=== PATIENT | male | born 1935 | race Caucasian/White ===

== ENCOUNTER 2016-10-14 08:40 | Emergency (ER) | payer MEDICARE ==
[~2016-10-14] VITALS: Ht 177.8 cm; Wt 84.1 kg
[~2016-10-14 08:40] MED LIST: CYAN1TAB42 PO; ZES10 PO
[2016-10-14 08:45] VITALS: BP 184/98; PULSE 102; RESP 14; O2SAT 98
--- NOTE | 2016-10-14 09:02 | ED.REPORT ---
HPI-General Illness Date of Service Oct 14, 2016 ED Provider: Margarito Blancas DO A 81 year old male with a history of kidney stones and hypertension presents to the ED complaining of high blood pressure that began earlier this morning. Patient recorded his BP at 209/115 before contacting EMS. Patient has been experiencing some mild diffuse "tingling". He believes his symptoms may be due to anxiety. Patient's reports that he often experiences an increase in BP every time he feels anxious. Patient currently takes 20 mg of Lisinopril 2x per day and has been taking Lisinopril for the past 5 years. He recently had a cold and his last physical was 6 months ago. Recent labs reveal a Creatinine of 1.27. Patient denies headache, chest pain, difficulty breathing, numbness, weakness or abdominal pain. He also denies any symptoms concerning for heart attack or stroke. Nursing Notes Stated Complaint: HIGH BP Chief Complaint: General Complaint Nursing Notes Reviewed: Yes Allergies: Coded Allergies: atorvastatin (Verified Adverse Reaction, Intermediate, Muscle weakness and pain, 10/14/16) Scheduled Amlodipine (Amlodipine) 5 Mg Tablet 5 MG PO DAILY Cyanocobalamin/FA-Expunged Drug, Do Not Renew (Vitamin G46-Wlmyt Acid-Expunged Drug, Do Not) 1 Each Tablet 1 EACH PO DAILY Lisinopril-Expunged Drug, Do Not Renew! (Lisinopril-Expunged Drug, Do Not Renew! ) 10 Mg Tablet 20 MG PO BID General Time Seen by MD: 08:59 Chief Complaint Other (High Blood Pressure ) Hx Obtained From: Patient Arrived By: Walk-in Sudden in Onset?: Yes Onset Occurred: Yesterday Symptom Duration: Since onset Associated with: Denies: Abdominal pain, Chest pain, Difficulty breathing, Dizziness, Headache Additional Notes: Pt reports mild tingling Pertinent Negative: Pt denies other symptoms Recent Healthcare: No recent doctor visit, No recent hospitalization Past Medical History Past Medical History Hx of kidney stones Reports: Hypertension Past Surgical History Colonoscopy with cold forceps polypectomy Smoking History Former Smoker Social History Other Social History: Good social support, Local resident Ambulatory Status Independent Review of Systems Pt reports mild diffuse "tingling" and high blood pressure Full Review of Systems Constitutional: Denies: Chills, Fever Respiratory: Denies: Dyspnea on exertion, Shortness of breath Cardiovascular: Denies: Chest pain GI: Denies: Abdominal pain, Nausea, Vomiting Neurologic: Denies: Change LOC, Dizziness, Headache, Numbness, Weakness Complete sys rev & neg: except as marked. Physical Exam Vital Signs Vital Signs Date Time Temp Pulse Resp B/P Pulse Ox O2 Delivery O2 Flow Rate FiO2 10/14/16 10:46 96 14 203/83 97 Room Air 10/14/16 10:20 91 21 203/86 97 Room Air 10/14/16 08:45 102 14 184/98 98 Room Air Initial VS: Reviewed Neck: Supple, Non-tender, Full range of motion Extremities: Vascular intact, Neuro intact, No swelling, No tenderness Skin: Warm, Dry, No cyanosis Psychiatric: Mood/affect normal, Behavior normal, Normal thought content General/Constitutional: Awake, Alert Head / Eyes: Atraumatic, Normocephalic, PERRL Respiratory / Chest: Atraumatic, Breath sounds NL, Breath sounds = bilat Cardiovascular: Heart rate NL, Regular rhythm Heart Sounds / Murmur: Positive: Murmur present... (right upper sternal boader ) Abdomen: Atraumatic, Soft, Non-tender Neurologic: Oriented X3, Speech NL, No motor deficits, No sensory deficits, CN II - XII intact, Reflexes equal bilat Interpretation & Diagnostics ECHOCARDIOGRAM 11/17/2013 Interpretation Summary The patient was in sinus tachycardia with heart rates between 94 - 109 bpm during the exam. The patient had a bundle branch block rhythm during the exam. The left ventricular cavity is small. There is mild-moderate concentric left ventricular hypertrophy. The ejection fraction is estimated to be 70-75%. The right ventricle is normal size. The right ventricle is hyperdynamic. Both atria are normal in size. There is mild aortic stenosis. The calculated aortic valve area is 1.6 sq cm. The ascending aorta is mildly enlarged. Interpretation ECG Interpretation: Sinus Rhythm Rate 90 Right bundle branck block Time: 09:17 Interpreted by: ED physician Re-Eval/Medical Decision Med Decision/Clinical Course Asymptomatic hypertension. No signs of end organ damage. EKG is obtained and unremarkable. Patient will be started on amlodipine. Return precautions given Time of Eval: 10:01 Patient Status: Condition improved Re-Evaluation/Progress Note: Patient is rechecked. BP is recorded at 196. He reports that his feeling better. Patient is informed of his results. Time of Eval: 10:40 Patient Status: Condition improved Re-Evaluation/Progress Note: Patient is rechecked. All of the patient's questions are addressed. He understands and agrees with the treatment plan. Counseled Regarding: Diagnosis, Lab results, Need for follow-up, When/why to return to ED Discharge & Departure Primary Impression: Hypertension Hypertension type: unspecified secondary hypertension Hypertension goal: unspecified goal Qualified Code: I15.9 - Secondary hypertension, unspecified Disposition: Home Discharge Condition All VS Reviewed: Yes Condition: Stable Patient Instructions: Chronic Hypertension (ED) Additional Instructions: Begin taking amlodipine 5 mg daily. Call your primary care doctor Sunday morning for a follow-up appointment. Return to the ER if you develop a severe headache, chest pain, focal numbness or weakness concerning for stroke, severe abdominal pain, persistent vomiting, or any other concerns. Referrals: Jose Arce MD (PCP) Scribe Attestation Portions of this note were transcribed by Bailey Palomares. I, Dr. Blancas personally performed the history, physical exam and medical decision-making; I reviewed and confirmed the accuracy of the information in the transcribed note. Signed by: Bailey Palomares, 10/14/16, 1041. copies to: Jose Arce MD, Timothy S DO Oct 14, 2016 09:02 BAILEY PALOMARES Oct 14, 2016 09:22
[2016-10-14] MEDS ORDERED: LORazepam 0.5 mg Tablet PO ONE (09:10)
[2016-10-14 10:20] VITALS: BP 203/86; PULSE 91; RESP 21; O2SAT 97
[2016-10-14] MEDS ORDERED: AMLO5TAB2 PO (10:37)
[2016-10-14 10:46] VITALS: BP 203/83; PULSE 96; RESP 14; O2SAT 97
== END 2016-10-14 10:48 | disposition home or self-care (01) ==
LOC: SED 08:40
DX: I10 Essential (primary) hypertension (principal); Z87.891 Personal history of nicotine dependence; Z88.8 Allergy status to other drugs, medicaments and biological substances